=== PATIENT | female | born 1985 | race Two or more races ===

== ENCOUNTER 2018-12-08 06:37 | Day surgery (SDC) | payer OTHER ==
[2018-12-08] MEDS ORDERED: DOXYCYCLINE HY100 MG PO (09:11)
[2018-12-08] MEDS ORDERED: NAPR500T14 PO (09:12)
== END 2018-12-08 12:07 | disposition home or self-care (01) ==
LOC: CIR.AMB 06:37
DX: O02.1 Missed abortion (principal)

== ENCOUNTER 2020-04-10 16:06 | Inpatient (IN) | payer OTHER ==
[~2020-04-10] VITALS: Ht 170.2 cm; Wt 3.6 kg
[~2020-04-10 16:06] MED LIST: DOXYCYCLINE HY100 MG PO; NAPR500T14 PO
[2020-04-10] MEDS ORDERED: PRENATAL TABLE1 EAC1 PO (16:43)
[2020-04-15] MEDS ORDERED: CODE1TAB37 PO (09:05)
== END 2020-04-15 11:57 | disposition home or self-care (01) | DRG 788 ==
LOC: LDR 16:06 → OB/GYN 04-12 01:04 → SURG-SUITE 04-12 14:11
PROVIDERS: ADMIT Obstetrics & Gynecology; ATTEND Obstetrics & Gynecology
PROC: 3E0P7VZ Introduction of Hormone into Female Reproductive, Via Natural or Artificial Opening (ICD-10-PCS; 2020-04-10)
PROC: 4A1HXFZ Monitoring of Products of Conception, Cardiac Rhythm, External Approach (ICD-10-PCS; 2020-04-10)
PROC: 3E033VJ Introduction of Other Hormone into Peripheral Vein, Percutaneous Approach (ICD-10-PCS; 2020-04-11)
PROC: 10D00Z1 Extraction of Products of Conception, Low, Open Approach (ICD-10-PCS; principal; 2020-04-12)
DX: O62.1 Secondary uterine inertia (principal); Z3A.39 39 weeks gestation of pregnancy; Z37.0 Single live birth; Z20.822 Contact with and (suspected) exposure to COVID-19